=== PATIENT | female | born 1960 | race Caucasian/White ===

== ENCOUNTER 2019-01-13 12:05 | Emergency (ER) | payer SELFPAY ==
[~2019-01-13] VITALS: Ht 170.2 cm; Wt 52.6 kg
[2019-01-13 12:38] VITALS: BP 105/57
[2019-01-13] MEDS ORDERED: NAPR-514 PO (13:39)
[2019-01-13] MEDS ORDERED: CHLO15MO2 SWSP (13:39)
[2019-01-13] MEDS ORDERED: PENI500T PO (13:39)
--- NOTE | 2019-01-13 13:40 | PHYS DOC ---
Past Medical History Past Medical History: A-Fib, CAD, Hypertension Past Surgical History: Appendectomy, Coronary Bypass Surgery, Tubal ligation, Other Additional Past Surgical Histo: AICD Additional Information: 0.25 PPD Alcohol Use: None Drug Use: None Adult General Chief Complaint Chief Complaint: DENTAL PROBLEM HPI HPI Patient is a 58 year old female who presents to the emergency department with complaints of right upper dental pain and gingival swelling over the last 1 or 2 days. Patient states she broke her tooth off last week. She denies any fever, nausea, vomiting, abdominal pain, sore throat, shortness of breath, or ear pain. She currently rates her pain a 10 out of 10 on pain scale, there are no alleviating or exacerbating factors. Review of Systems Review of Systems Constitutional: Denies fever or chills [] HENT: Denies nasal congestion or sore throat; see history of present illness[] Respiratory: Denies cough or shortness of breath [] GI: Denies nausea, vomiting Musculoskeletal: Denies back pain or joint pain [] Integument: Denies rash or skin lesions [] Neurologic: Denies headache, Allergies Allergies Allergies Coded Allergies Type Severity Reaction Last Updated Verified No Known Drug Allergies 05/09/15 No Physical Exam Physical Exam Constitutional: Well developed, well nourished, no acute distress, non-toxic appearance. [] HENT: Normocephalic, atraumatic, bilateral external ears normal, oropharynx moist, no oral exudates, nose normal; dental caries and gingival erythema in right upper quadrant, no visible abscess[] Eyes: conjunctiva normal, no discharge. [] Neck: Normal range of motion, no tenderness, supple, no stridor. [] Cardiovascular:Heart rate regular rhythm, no murmur [] Lungs & Thorax: Bilateral breath sounds clear to auscultation [] Skin: Warm, dry, no erythema, no rash. [] Extremities: No cyanosis, ROM intact Neurologic: Alert and oriented X 3, no focal deficits noted. [] Psychologic: Affect normal, judgement normal, mood normal. [] Current Patient Data Vital Signs Vital Signs Date Time Temp Pulse Resp B/P (MAP) Pulse Ox O2 Delivery O2 Flow Rate FiO2 01/13/19 12:38 97.3 64 18 105/57 (73) 99 Room Air 97.3 EKG EKG [] Radiology/Procedures Radiology/Procedures [] Course & Med Decision Making Course & Med Decision Making Pertinent Labs and Imaging studies reviewed. (See chart for details) dx: dentalgia, infected dental caries, gingivitis [] Dragon Disclaimer Dragon Disclaimer This electronic medical record was generated, in whole or in part, using a voice recognition dictation system. Departure Departure Impression: Primary Impression: Dentalgia Additional Impressions: Infected dental caries Gingivitis Disposition: HOME, SELF-CARE Condition: STABLE Referrals: NO PCP (PCP) Patient Instructions: Dental Caries, Gingivitis, [id number] Additional Instructions: Fill prescriptions and use as directed. Follow up with dentist using the referral list provided. Return to the ER if symptoms worsen. Scripts Chlorhexidine Gluconate (PERIDEX) 15 Ml Mouthwash 15-30 ML SWSP BID for 10 Days, #473 ML 0 Refills Prov: LOBITO CHASE APRN 01/13/19 Naproxen (NAPROXEN) 500 Mg Tablet 1 TAB PO BID for 10 Days, #20 TAB 0 Refills Prov: LOBITO CHASE APRN 01/13/19 Penicillin V Potassium (PENICILLIN V POTASSIUM) 500 Mg Tablet 1 TAB PO QID for 10 Days, #40 TAB 0 Refills Prov: LOBITO CHASE APRN 01/13/19 Problem Qualifiers LOBITO CHASE APRN Jan 13, 2019 13:40
[2019-01-13] MEDS ORDERED: HYDROcodone/APAP 5/325MG 1 TAB TABLET PO ONE (13:45)
== END 2019-01-13 14:02 | disposition home or self-care (01) ==
LOC: ER 12:05
DX: K02.9 Dental caries, unspecified (principal); K05.10 Chronic gingivitis, plaque induced; I48.91 Unspecified atrial fibrillation; I25.10 Atherosclerotic heart disease of native coronary artery without angina pectoris; I10 Essential (primary) hypertension; F17.200 Nicotine dependence, unspecified, uncomplicated; Z90.89 Acquired absence of other organs; Z98.51 Tubal ligation status; Z95.1 Presence of aortocoronary bypass graft; Z95.810 Presence of automatic (implantable) cardiac defibrillator
CPT/HCPCS: 99283

== ENCOUNTER 2019-08-25 02:51 | Emergency (ER) | payer SELFPAY ==
[~2019-08-25] VITALS: Ht 170.2 cm; Wt 56.8 kg
[~2019-08-25 02:51] MED LIST: CHLO15MO2 SWSP; NAPR-514 PO; PENI500T PO
[2019-08-25 03:00] VITALS: BP 131/62
--- NOTE | 2019-08-25 03:15 | PHYS DOC ---
Past Medical History Past Medical History: A-Fib, CAD, Hypertension Past Surgical History: Appendectomy, Coronary Bypass Surgery, Tubal ligation, Other Additional Past Surgical Histo: AICD Smoking Status: Current Every Day Smoker Alcohol Use: None Drug Use: None Adult General Chief Complaint Chief Complaint: LOWER EXT PAIN [facility] HPI Patient is a 58 year old female who presents secondary to complaint of pain on the plantar aspect of her left foot at the ball of her foot. Has been progressing for the past 3 days. 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 No known injury or trauma. She has home Percocet which she has been taking for chronic pain but states this is not "touching my pain." Review of Systems Review of Systems All other ROS is negative unless otherwise stated in [facility] Allergies Allergies Allergies Coded Allergies Type Severity Reaction Last Updated Verified No Known Drug Allergies 05/09/15 No Physical Exam Physical Exam See above Constitutional: Well developed, well nourished, no acute distress, non-toxic appearance. [] HENT: Normocephalic, atraumatic, bilateral external ears normal, oropharynx moist, no oral exudates, nose normal. [] Eyes: PERRLA, EOMI, conjunctiva normal, no discharge. [] Neck: Normal range of motion, no tenderness, supple, no stridor. [] Cardiovascular:Heart rate regular rhythm, no murmur [] Lungs & Thorax: Bilateral breath sounds clear to auscultation [] Skin: Warm, dry, no erythema, no rash. [] Back: No tenderness, no CVA tenderness. [] Extremities: Normal except for left foot which has what appears to be a callus and/or corn on the plantar aspect ball of foot in the center. No sweating erythema. Neurologic: Alert and oriented X 3, normal motor function, normal sensory function, no focal deficits noted. [] EKG EKG [] Radiology/Procedures Radiology/Procedures [] Course & Med Decision Making Course & Med Decision Making Pertinent Labs and Imaging studies reviewed. (See chart for details) 0317: Patient seen for pain. Examination reveals what appears to be a callus or corn. Recommend corn pads and follow-up with podiatry as needed. Dragon Disclaimer Dragon Disclaimer This electronic medical record was generated, in whole or in part, using a voice recognition dictation system. Departure Departure Impression: Primary Impression: Callus of foot Disposition: HOME, SELF-CARE Condition: STABLE Referrals: NO PCP (PCP) Patient Instructions: Corns and Calluses-SportsMed Additional Instructions: Get and use corn pads. Consider getting new shoes. FAHAD MOORE DO Aug 25, 2019 03:15
== END 2019-08-25 03:28 | disposition home or self-care (01) ==
LOC: ER 02:51
DX: L84 Corns and callosities (principal); M79.672 Pain in left foot; I48.20 Chronic atrial fibrillation, unspecified; I11.9 Hypertensive heart disease without heart failure; F17.200 Nicotine dependence, unspecified, uncomplicated; Z90.89 Acquired absence of other organs; Z98.51 Tubal ligation status; Z98.890 Other specified postprocedural states
CPT/HCPCS: 99281

== ENCOUNTER 2021-04-03 20:34 | Inpatient (IN) | payer SELFPAY ==
[~2021-04-03] VITALS: Ht 170.2 cm; Wt 55.2 kg
[2021-04-03 20:52] LABS: BASO # 0.1 x10^3/uL (0.0-0.2); BASO % 1 % (0-3); EOS # 0.1 x10^3/uL (0.0-0.7); EOS % 2 % (0-3); HEMATOCRIT 36.6 % (36.0-47.0); HEMOGLOBIN 12.6 g/dL (12.0-15.5); LYMPH # 2.4 x10^3/uL (1.0-4.8); LYMPH % 35 % (24-48); MEAN CORPUSCULAR HEMOGLOBIN 31 pg (25-35); MEAN CORPUSCULAR HGB CONC 34 g/dL (31-37); MEAN CORPUSCULAR VOLUME 90 fL (79-100); MONO # 0.7 x10^3/uL (0.0-1.1); MONO % 11 % (0-9); NEUT # 3.5 x10^3/uL (1.8-7.7); NEUT % 51 % (31-73); PLATELET COUNT 217 x10^3/uL (140-400); RED BLOOD COUNT 4.07 x10^6/uL (3.50-5.40); RED CELL DISTRIBUTION WIDTH 15.6 % (11.5-14.5); WHITE BLOOD COUNT 6.8 x10^3/uL (4.0-11.0)
[2021-04-03 21:01] LABS: CALCIUM 8.5 mg/dL (8.5-10.1); CREATININE 1.2 mg/dL (0.6-1.0); GFR 45.7; POTASSIUM 4.3 mmol/L (3.5-5.1)
[2021-04-03 21:07] LABS: ALBUMIN 3.4 g/dL (3.4-5.0); ALBUMIN/GLOBULIN RATIO 0.7 (1.0-1.7); MAGNESIUM 1.8 mg/dL (1.8-2.4); PHOSPHORUS 4.5 mg/dL (2.6-4.7); TOTAL BILIRUBIN 0.5 mg/dL (0.2-1.0)
--- NOTE | 2021-04-03 21:11 | RAD ---
Exam: CT head and cervical spine INDICATION: Blunt head injury TECHNIQUE: Sequential axial images through the head and cervical spine were obtained without the admi nistration of IV contrast. Exposure: One or more of the following in the visualized dose reduction techniques were utilized for this examination: 1. Automated exposure control 2. Adjustment of the MA and/or KV according to patient size 3. Use of iterative of reconstructive technique Comparisons: None FINDINGS: Head: No focal parenchymal lesion or hemorrhage is identified. There is no midline shift or sulcal effaceme nt. No acute vascular territory infarction is identified. Abarca-white distinction is preserved. The ventricular system is within normal limits without compression hydrocephalus. The basal cisterns are well maintained. The visualized portions of the paranasal sinuses and mastoid air cells are well-pneumatized. No acute fractures. Cervical spine: Straightening of cervical spine which may positional. Vertebral body heights are well-maintained. Fracture to the cervical spine is not identified. Mild multilevel spondylotic change in cervical spine with broad-based disc osteophyte complex at C4-C 5, and C5-C6. This causes mild spinal canal stenosis. Mild bilateral facet arthropathy is also noted in the cervical spine. Visualized paraspinal soft tissues are unremarkable. IMPRESSION: 1. No acute intracranial abnormality. 2. Negative CT C-spine for acute traumatic injury. Electronically signed by: Italo Lim MD (04/03/2021 9:09 PM) [facility]
--- NOTE | 2021-04-03 21:19 | RAD ---
AP chest. HISTORY: Cough, congestion AP view was taken of the chest. Patient's had previous bypass. There is a left pacemaker with atrial ventricular pacing leads. Heart is normal in size. There is mild pleural thickening on the left. Ther e are no confluent infiltrates. IMPRESSION: 1. Mild left pleural thickening. 2. No acute infiltrates. Electronically signed by: Bharath Cleary MD (04/03/2021 9:17 PM) [facility]
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
[2021-04-03] MEDS ORDERED: ONDANSETRON PF 4 MG/2 ML VIAL. IVP PRN (22:00)
[2021-04-03] MEDS ORDERED: NITROGLYCERIN SUBLINGUAL 0.4 MG BOTTLE OF 25. SL PRN (22:00)
[2021-04-03] MEDS ORDERED: ACETAMINOPHEN 325 MG TABLET. PO PRN (22:00)
[2021-04-03] MEDS ORDERED: MORPHINE SULFATE 2 MG/ML INJ. IVP PRN (22:00)
[2021-04-04] VITALS (7 sets, daily range): BP systolic 105–144; BP diastolic 52–75
[2021-04-04] MEDS ORDERED: ALPR1TAB6 PO (00:16)
[2021-04-04] MEDS ORDERED: OXYC1TAB20 PO (00:16)
[2021-04-04] MEDS ORDERED: LISI20TA18 PO (00:16)
[2021-04-04] MEDS ORDERED: ASPI81TA59 PO (00:16)
[2021-04-04] MEDS ORDERED: SOTA120T PO (00:16)
[2021-04-04] MEDS ORDERED: ATOR80TA72 PO (00:16)
--- NOTE | 2021-04-04 03:07 | NUR ---
The patient, URMILA BRUSH, 60 y/o, F admitted by CONCEPCION HANLEY MD, was given written information regarding hospital policies, unit procedures and contact persons. Valuables were checked and documented. Pt oriented to unit, staff and poc explained. will cont t[ monitor pt status and safety.pmrn
[2021-04-04 04:57] LABS: BASO % 1 % (0-3); EOS # 0.1 x10^3/uL (0.0-0.7); EOS % 2 % (0-3); HEMOGLOBIN 11.4 g/dL (12.0-15.5); LYMPH # 2.3 x10^3/uL (1.0-4.8); LYMPH % 34 % (24-48); MEAN CORPUSCULAR HEMOGLOBIN 30 pg (25-35); MEAN CORPUSCULAR HGB CONC 34 g/dL (31-37); MEAN CORPUSCULAR VOLUME 90 fL (79-100); MONO # 0.7 x10^3/uL (0.0-1.1); MONO % 10 % (0-9); NEUT # 3.7 x10^3/uL (1.8-7.7); NEUT % 54 % (31-73); PLATELET COUNT 189 x10^3/uL (140-400); RED BLOOD COUNT 3.78 x10^6/uL (3.50-5.40); RED CELL DISTRIBUTION WIDTH 15.6 % (11.5-14.5); WHITE BLOOD COUNT 6.9 x10^3/uL (4.0-11.0)
[2021-04-04 05:09] LABS: GFR 56.4; POTASSIUM 4.2 mmol/L (3.5-5.1)
[2021-04-04 05:16] LABS: CALCIUM 8.1 mg/dL (8.5-10.1)
--- NOTE | 2021-04-04 06:23 | EKG ---
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
[2021-04-04] MEDS ORDERED: NICOTINE 14MG PATCH. TD PRN (07:45)
[2021-04-04] MEDS ORDERED: CALCIUM CARBONATE 500 MG TAB.CHEW PO PRN (07:45)
[2021-04-04] MEDS ORDERED: hydrALAZINE 20 MG/ML VIAL. IVP PRN (07:45)
[2021-04-04] MEDS ORDERED: MAGNESIUM HYDROXIDE 2,400 MG/30 ML ORAL.SUSP. PO PRN (07:45)
[2021-04-04] MEDS ORDERED: ACETAMINOPHEN 325 MG TABLET. PO PRN (07:45)
[2021-04-04] MEDS ORDERED: NICOTINE 21MG PATCH. TD PRN (07:45)
[2021-04-04] MEDS ORDERED: ONDANSETRON PF 4 MG/2 ML VIAL. IVP PRN (07:45)
[2021-04-04] MEDS ORDERED: MAG HYDROX/ALUMINUM HYD/SIMETH 30 ML ORAL.SUSP PO PRN (07:45)
[2021-04-04] MEDS ORDERED: SOTALOL 80 MG TABLET. PO SCH (09:00)
[2021-04-04] MEDS ORDERED: ASPIRIN CHEWABLE 81 MG TABLET. PO SCH (09:00)
[2021-04-04] MEDS ORDERED: LISINOPRIL 20 MG TABLET PO SCH (09:00)
[2021-04-04] MEDS: oxyCODONE/APAP 10/325 1 TAB TABLET PO PRN ×2 (09:36→16:06)
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
--- NOTE | 2021-04-04 11:14 | NUR ---
SS following for discharge planning. SS reviewed pt chart and discussed with pt RN. Pt is from home and is currently on room air. Cardiology consulted. ECHO ordered. Self pay. Med Assist following. SS will continue to follow for discharge planning.
--- NOTE | 2021-04-04 13:48 | CARD ---
MR#: [id number] Date of Study: 04/04/2021 Ordering Physician: DEBRA TATE, Referring Physician: Jamil KEENAN: Kristian Eubanks [facility] APPROVED REPORT EXAM: Two-dimensional and M-mode echocardiogram with Doppler and color Doppler. Other Information Quality : GoodHR: 60bpm Rhythm : NSR INDICATION Atrial Fibrillation Cardiac Disease: CAD Syncope Surgery/Intervention ICD/Pacemaker: CABG: RISK FACTORS Hypertension Smoking 2D DIMENSIONS Left Atrium(2D)3.8 (1.6-4.0cm)IVSd0.8 (0.7-1.1cm) Aortic Root(2D)3.4 (2.0-3.7cm)LVDd5.1 (3.9-5.9cm) LVOT Diameter2.0 (1.8-2.4cm)PWd0.8 (0.7-1.1cm) LVDs4.6 (2.5-4.0cm)FS (%) 8.6 % SV22.9 ml Aortic Valve AoV Peak Seven.130.1cm/sAoV VTI28.7cm AO Peak GR.6.8mmHgLVOT VTI 16.66cm AO Mean GR.4mmHg Mitral Valve MV E Aohdpoeb03.0cm/sMV E Peak Gr.6mmHg MV DECEL [id number] A Pghmmgcu66.3cm/s MV E Mean Gr.2mmHgE/A Ratio1.0 TDI Lateral E' P. V5.34cm/sMedial E' P. V5.02cm/s E/Lateral E'15.4E/Medial E'16.3 Tricuspid Valve TR P. Sufrlfya124nd/sTR Peak Gr.26mmHg LEFT VENTRICLE The left ventricle is normal size. There is normal left ventricular wall thickness. The left ventricu lar systolic function is mildly impaired. The Ejection Fraction is 45-50%. Abnormal septal motion pro bably due to pacemaker activation. Severe hypokinesis of basal posterior wall. Transmitral Doppler fl ow pattern is Grade II-pseudonormal filling dynamics. No left ventricle thrombus noted on this study. There is no ventricular septal defect visualized. There is no left ventricular aneurysm. There is no mass noted in the left ventricle. RIGHT VENTRICLE The right ventricle is normal size. There is normal right ventricular wall thickness. The right ventr icular systolic function is normal. ATRIA The left atrium is mildly dilated. The right atrium size is normal. The interatrial septum is intact with no evidence for an atrial septal defect or patent foramen ovale as noted on 2-D or Doppler imagi ng. AORTIC VALVE The aortic valve is mildly thickened but opens well. The aortic valve is trileaflet. Doppler and [place] r Flow revealed no significant aortic regurgitation. There is no significant aortic valvular stenosis . There is no aortic valvular vegetation. MITRAL VALVE The mitral valve is thickened but opens well. There is no evidence of mitral valve prolapse. There is no mitral valve stenosis. Doppler and Color-flow revealed mild to moderate mitral regurgitation. TRICUSPID VALVE The tricuspid valve is normal in structure and function. Doppler and Color Flow revealed mild tricusp id regurgitation. The PA pressure was estimated at 30 mmHg. There is no tricuspid valve prolapse or v egetation. There is no tricuspid valve stenosis. PULMONIC VALVE The pulmonary valve is normal in structure and function. Trivial pulmonic regurgitation There is no p ulmonic valvular stenosis. GREAT VESSELS The aortic root is normal in size. The ascending aorta is normal in size. The pulmonary artery is nor mal. The IVC is normal in size and collapses >50% with inspiration. PERICARDIAL EFFUSION There is no pleural effusion. There is no evidence of significant pericardial effusion. Critical Notification Critical Value: No <Conclusion> The left ventricular systolic function is mildly impaired. The Ejection Fraction is 45-50%. Abnormal septal motion probably due to pacemaker activation. Severe hypokinesis of basal posterior wall. Mild to moderate mitral regurgitation. Mild tricuspid regurgitation. The PA pressure was estimated at 30 mmHg. There is no evidence of significant pericardial effusion. Signed by : Josef Villa, Electronically Approved : 04/04/2021 13:48:23
[2021-04-04] MEDS ORDERED: HEPARIN for SUB-Q USE 5,000 UNIT/ML VIAL. SQ SCH (14:00)
[2021-04-04] MEDS ORDERED: ALPRAZolam 1 MG TABLET PO SCH (21:00)
== END 2021-04-04 16:32 | disposition left against medical advice (07) | DRG 312 ==
LOC: ER 20:34 → 6 SOUTH 21:40
PROVIDERS: ADMIT Internal Medicine; ATTEND Internal Medicine
DX: R55 Syncope and collapse (principal); E78.5 Hyperlipidemia, unspecified; F17.210 Nicotine dependence, cigarettes, uncomplicated; G89.29 Other chronic pain; I10 Essential (primary) hypertension; I25.10 Atherosclerotic heart disease of native coronary artery without angina pectoris; I48.91 Unspecified atrial fibrillation; J44.9 Chronic obstructive pulmonary disease, unspecified; S09.90XA Unspecified injury of head, initial encounter; Z79.891 Long term (current) use of opiate analgesic; Z82.49 Family history of ischemic heart disease and other diseases of the circulatory system; Z90.49 Acquired absence of other specified parts of digestive tract; Z95.1 Presence of aortocoronary bypass graft; Z95.810 Presence of automatic (implantable) cardiac defibrillator; F32.A Depression, unspecified; F41.9 Anxiety disorder, unspecified; M19.90 Unspecified osteoarthritis, unspecified site; Z71.6 Tobacco abuse counseling; Z53.29 Procedure and treatment not carried out because of patient's decision for other reasons; W18.39XA Other fall on same level, initial encounter; Y93.89 Activity, other specified; Y92.89 Other specified places as the place of occurrence of the external cause; Y99.8 Other external cause status
CPT/HCPCS: 36415; 70450; 71045; 72125; 80048; 80053; 83735; 83880; 84100; 84443; 84484; 85025; 93005; 93306; 96374; 96375; J1644; J2270; J2405; 99285-25; G0378

== ENCOUNTER 2021-06-25 19:32 | Emergency (ER) | payer SELFPAY ==
[~2021-06-25] VITALS: Ht 170.2 cm; Wt 56.8 kg
[~2021-06-25 19:32] MED LIST changes: +ALPR1TAB6 PO; +ASPI81TA59 PO; +ATOR80TA72 PO; +LISI20TA18 PO; +OXYC1TAB20 PO; +SOTA120T PO
[2021-06-25 21:00] VITALS: BP 119/62
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
[2021-06-25] MEDS: LIDOCAINE 1% Multi-Dose 20 ML VIAL. INJ ONE (21:30)
[2021-06-25] MEDS ORDERED: DOXY100T PO (22:23)
== END 2021-06-25 22:40 | disposition home or self-care (01) ==
LOC: ER 19:32
DX: L02.212 Cutaneous abscess of back [any part, except buttock and flank] (principal); I48.91 Unspecified atrial fibrillation; I25.810 Atherosclerosis of coronary artery bypass graft(s) without angina pectoris; I10 Essential (primary) hypertension; G89.29 Other chronic pain; F17.200 Nicotine dependence, unspecified, uncomplicated; Z90.89 Acquired absence of other organs; Z98.51 Tubal ligation status
CPT/HCPCS: 10060; 99283; J3490